=== PATIENT | female | born 1970 | race Caucasian/White ===

== ENCOUNTER 2016-10-21 15:01 | Emergency (ER) | payer MEDICAID, OTHER ==
[~2016-10-21] VITALS: Wt 69.0 kg
[~2016-10-21 15:01] MED LIST: CEPH-443 PO; HYDR-3498 PO; IBUP-1542 PO; ONDA4TAB35 PO
[2016-10-21] MEDS ORDERED: KETOROLAC 15 MG INJ IV STA (15:48)
[2016-10-21] MEDS ORDERED: ONDANSETRON 4 MG INJ IV STA (15:48)
[2016-10-21] MEDS ORDERED: SOD CHLORIDE 0.9% 1,000 ML IV STA (15:48)
[2016-10-21 16:04] LABS: ADD UMIC YES; URINE BILIRUBIN (Dip) NEGATIVE (NEGATIVE); URINE BLOOD (Dip) 3+ (NEGATIVE); URINE COLOR LT. YELLOW (YELLOW); URINE GLUCOSE (Dip) NEGATIVE (NEGATIVE); URINE KETONES (Dip) NEGATIVE (NEGATIVE); URINE LEUKOCYTE ESTERASE (Dip) 1+ (NEGATIVE); URINE NITRITE (Dip) NEGATIVE (NEGATIVE); URINE TOTAL PROTEIN (Dip) NEGATIVE (NEGATIVE); URINE UROBILINOGEN (Dip) 0.2 E.U./dL (0.1-1.0)
[2016-10-21 16:14] LABS: ADD SCAN DIFF NO
[2016-10-21 16:15] LABS: BACTERIA,URINE MODERATE
[2016-10-21 16:17] LABS: BASOPHILS % 0.5 % (0.0-2.0); EOSINOPHILS # 0.1 10^3/ul (0.0-0.5); EOSINOPHILS % 1.4 % (0.0-7.0); HEMATOCRIT 38.1 % (37.0-47.0); HEMOGLOBIN 12.7 g/dl (12.0-16.0); LYMPHOCYTES % 16.1 % (15.0-51.0); MEAN CORPUSCULAR HEMOGLOBIN 27.1 pg (29.0-33.0); MEAN CORPUSCULAR HGB CONC 33.3 g/dl (32.0-37.0); MEAN CORPUSCULAR VOLUME 81.2 fl (82.0-101.0); MEAN PLATELET VOLUME 9.6 fl (7.4-10.4); MONOCYTE # 0.6 10^3/ul (0.3-0.9); MONOCYTES % 8.7 % (0.0-11.0); NEUTROPHIL # 4.7 10^3/ul (1.6-7.5); PLATELET COUNT 353 10^3/UL (140-415); RED BLOOD COUNT 4.69 10^6/ul (4.20-5.40); RED CELL DISTRIBUTION WIDTH 12.3 % (11.5-14.5); WHITE BLOOD COUNT 6.4 10^3/ul (4.8-10.8)
[2016-10-21] MEDS ORDERED: CEPH-443 PO (16:28)
[2016-10-21] MEDS ORDERED: CEPHALEXIN 500 MG CAP PO ONE (16:30)
[2016-10-21 16:33] LABS: ALBUMIN 3.8 g/dl (3.3-4.9)
[2016-10-21 16:34] LABS: POTASSIUM 3.7 mmol/L (3.5-5.1)
[2016-10-21 16:36] LABS: ALBUMIN/GLOBULIN RATIO 1.11; BILIRUBIN,INDIRECT 0.7 mg/dl (0-1.1); BILIRUBIN,TOTAL 0.7 mg/dl (0.2-1.3); CREATININE 0.67 mg/dl (0.44-1.00); TOTAL PROTEIN 7.2 g/dl (6.1-8.1)
--- NOTE | 2016-10-21 16:36 | ERD ---
ER Documentation Chief Complaint Date/Time DATE: 10/21/16 TIME: 16:35 Chief Complaint ABD PAIN FOR THE PAST FEW DAYS, N/V. MILD DYSURIA PER PT HPI 46-year-old woman complains of dysuria 3 days, she was recently diagnosed with urinary tract infection and PMD placed on Bactrim double strength. She denies back pain, no fevers or chills, no vomiting or diarrhea. ROS All systems reviewed and are negative except as per history of present illness. Medications Home Meds Active Scripts Cephalexin* (Keflex*) 500 Mg Capsule, 500 MG PO QID for 5 Days, CAP Prov:MARIA ALEJANDRA ACEVEDO MD 10/21/16 Cephalexin* (Keflex*) 500 Mg Capsule, 500 MG PO BID for 5 Days, CAP Prov:ZAKIYA PINTO PA-C 02/16/16 Ondansetron Hcl* (Zofran* ODT) 4 mg -ODT Tab.disper, 4 MG PO Q6 Y for NAUSEA AND /OR VOMITING, #20 TAB Prov:ZAKIYA PINTO PA-C 02/16/16 Hydrocodone Bit-Acetaminophen* (Surprise*) 5-325 Mg Tab, 1 TAB PO Q6 Y for PAIN, # 20 TAB Prov:ZAKIYA PINTO PA-C 02/16/16 Ibuprofen* (Motrin*) 600 Mg Tab, 600 MG PO Q6H Y for PAIN AND OR ELEVATED TEMP, #30 TAB Prov:ZAKIYA PINTO PA-C 02/16/16 Allergies Allergies: Coded Allergies: No Known Allergy (Unverified , 02/16/16) PMhx/Soc Recent UTI History of Surgery: Yes ( X3) Anesthesia Reaction: No Hx Alcohol Use: No Hx Substance Use: No Hx Tobacco Use: No FmHx Family History: No diabetes Physical Exam Vitals Vital Signs Date Time Temp Pulse Resp B/P Pulse Ox O2 Delivery O2 Flow Rate FiO2 10/21/16 17:40 99.8 89 20 110/62 99 Room Air 10/21/16 15:07 100.3 110 21 111/60 99 Physical Exam GENERAL: Well-developed, well-nourished, well-hydrated, febrile HEENT: Moist mucous membranes, pink conjunctiva, no cervical spine tenderness or step-off deformities, no goiter, no jaundice or icterus, extraocular movements intact without pain. No submandibular induration, and no pharyngeal erythema NEURO: Alert and oriented 3, cranial nerves II through XII intact bilaterally, pupils equal round reactive to light, no focal deficits or facial asymmetry, sensation intact distally Strength 5/5 in upper and lower extremities bilaterally CARDIAC: Tachycardic and regular, no murmurs rubs or gallops LUNGS: Clear bilaterally no wheezing crackles or stridor ABDOMEN: Soft nontender, no guarding, no rigidity, no rebound, no psoas sign no obturator sign. Normoactive bowel sounds SKIN: Warm and dry to touch, no abrasions, contusions, or hematomas, no lacerations, no ecchymosis, no target lesions, and without ulcers EXTREMITIES: No clubbing cyanosis or edema, calves are bilaterally symmetrical, no Homans sign, no popliteal cord sign. Distal pulses equal and bilateral. No CVA tenderness to touch PSYCH: Normal affect without agitation or irritability Result Diagram: 10/21/16 1605 10/21/16 1605 Results 24 hrs Laboratory Tests Test 10/21/16 16:00 10/21/16 16:05 Urine Color LT. YELLOW Urine Clarity SLIGHTLY CLOUDY Urine pH 6.5 Urine Specific Gunpowder <=1.005 Urine Ketones NEGATIVE Urine Nitrite NEGATIVE Urine Bilirubin NEGATIVE Urine Urobilinogen 0.2 E.U./dL Urine Leukocyte Esterase 1+ Urine Microscopic RBC 5-10/HPF Urine Microscopic WBC 2-5/HPF Urine Epithelial Cells MODERATE Urine Amorphous Urates MODERATE Urine Bacteria MODERATE Urine Hemoglobin 3+ Urine Glucose NEGATIVE% Urine Total Protein NEGATIVE White Blood Count 6.410^3/ul Red Blood Count 4.6910^6/ul Hemoglobin 12.7g/dl Hematocrit 38.1% Mean Corpuscular Volume 81.2fl Mean Corpuscular Hemoglobin 27.1pg Mean Corpuscular Hemoglobin Concent 33.3g/dl Red Cell Distribution Width 12.3% Platelet Count 97115^3/UL Mean Platelet Volume 9.6fl Neutrophils % 73.0% Lymphocytes % 16.1% Monocytes % 8.7% Eosinophils % 1.4% Basophils % 0.5% Nucleated Red Blood Cells % 0.0/100WBC Neutrophils # 4.710^3/ul Lymphocytes # 1.010^3/ul Monocytes # 0.610^3/ul Eosinophils # 0.110^3/ul Basophils # 0.010^3/ul Nucleated Red Blood Cells # 0.010^3/ul Sodium Level 138mmol/L Potassium Level 3.7mmol/L Chloride Level 103mmol/L Carbon Dioxide Level 22mmol/L Anion Gap 17 Blood Urea Nitrogen 11mg/dl Creatinine 0.67mg/dl Glucose Level 132mg/dl Calcium Level 9.2mg/dl Total Bilirubin 0.7mg/dl Direct Bilirubin 0.00mg/dl Indirect Bilirubin 0.7mg/dl Aspartate Amino Transf (AST/SGOT) 20IU/L Alanine Aminotransferase (ALT/SGPT) 20IU/L Alkaline Phosphatase 71IU/L Total Protein 7.2g/dl Albumin 3.8g/dl Globulin 3.40g/dl Albumin/Globulin Ratio 1.11 Lipase 52U/L Current Medications Medications (Trade) Dose Ordered Sig/Ailyn Route PRN Reason Start Time Stop Time Status Last Admin Dose Admin Sodium Chloride (NS) 1,000 ml @ 1,000 mls/hr Q1H STAT IV 10/21/16 15:48 10/21/16 16:47 DC 10/21/16 16:23 Ondansetron HCl (Zofran Inj) 4 mg ONCE STAT IV 10/21/16 15:48 10/21/16 15:49 DC 10/21/16 16:22 Ketorolac Tromethamine (Toradol) 15 mg ONCE STAT IV 10/21/16 15:48 10/21/16 15:49 DC 10/21/16 16:22 Cephalexin 500 mg 500 mg ONCE ONCE PO 10/21/16 16:30 10/21/16 16:36 DC 10/21/16 16:37 Ceftriaxone Sodium (Rocephin) 50 ml @ 100 mls/hr ONCE ONCE IVPB 10/21/16 17:00 10/21/16 17:29 DC 10/21/16 16:39 Procedures/MDM IV line was established patient was placed on quality assurance monitor final rhythm strip revealed a sinus tachycardia at 110 bpm with upright P and T waves. Patient was febrile. I administered 1 L normal saline intravenously and Toradol 15 mg IV with good effect. Patient also received Zofran 4 mg IV. CBC and electrolytes were normal, urine analysis was positive for infection. I treated her here with ceftriaxone 1 g IV. I will prescribe cephalexin 4 times daily for the next 5 days, Bactrim is generally not indicated anymore as first-line oral therapy for urinary tract infections, unfortunately this is what she received for her UTI. I do not suspect pyelonephritis at this time and I am hopeful cephalexin will work. I did tell her return tomorrow if she has continued fever or develops back pain. Differential diagnoses considered, included but not limited to acute coronary syndrome, pulmonary embolism, aortic dissection, abdominal aortic aneurysm, sepsis, stroke, meningitis, encephalitis, pneumonia, appendicitis, cholecystitis , bowel obstruction, pyelonephritis, nephrolithiasis, cystitis, as well as metabolic, hematologic, and electrolyte abnormalities. As well as abscess, cellulitis, fractures, and dislocations. Patient feels much better at this time, and vital signs are normal, symptoms have improved. I did give strict instructions to return to the ED if symptoms continue or worsen, patient will otherwise follow-up with primary care physician. Patient understood instructions and agreed to plan. Departure Diagnosis: Primary Impression: UTI (urinary tract infection) Urinary tract infection type: acute cystitis Hematuria presence: without hematuria Qualified Code: N30.00 - Acute cystitis without hematuria Condition: Good Patient Instructions: Bladder Infection, Female (Adult) MARIA ALEJANDRA ACEVEDO MD Oct 21, 2016 16:36
[2016-10-21 16:37] LABS: CALCIUM 9.2 mg/dl (8.4-10.2)
[2016-10-21] MEDS ORDERED: CEFTRIAXONE 1 GM/50 ML (PMX) 50 ML IVPB ONE (17:00)
[2016-10-21 17:40] VITALS: BP 110/62; PULSE 89; RESP 20; TEMP 99.8
== END 2016-10-21 17:40 | disposition home or self-care (01) ==
LOC: FTE 15:01
DX: N30.00 Acute cystitis without hematuria (principal); R11.2 Nausea with vomiting, unspecified
CPT/HCPCS: 80053; 81001; 83690; 85025; J0696; J1885; J2405; J7030; Z7610; 81003; 96374; 96375

== ENCOUNTER 2017-09-15 14:44 | Emergency (ER) | END 2017-09-15 18:35 | disposition left against medical advice (07) ==

== ENCOUNTER 2018-03-16 10:17 | Day surgery (SDC) | END 2018-03-16 16:44 | disposition home or self-care (01) ==